=== PATIENT | male | born 1960 | race Caucasian/White ===

== ENCOUNTER 2017-07-21 15:28 | Outpatient (CLI) | payer BC, OTHER ==
--- NOTE | 2017-07-22 13:53 | Ultrasound Report ---
RIGHT UPPER QUADRANT ULTRASOUND: 07/21/2017 CLINICAL INDICATION: Pain, history of trauma two months ago. TECHNIQUE: Real-time scanning was performed with in home sales representative static images obtained. FINDINGS: The liver measures 17.2 cm. The majority of the liver demonstrates increased echogenicity, compatible with fatty infiltration. There is a region of likely fatty sparing in the right lobe. The common bile duct measures 6 mm. The gallbladder is normal. The right kidney measures 10.9 cm, and de monstrates no hydronephrosis. IMPRESSION: FATTY INFILTRATION OF THE LIVER, WITH LIKELY FOCAL FATTY SPARING IN THE RIGHT LOBE. NO F REE FLUID OR CHOLELITHIASIS. JOB #: [id number] EXT JOB #:[id number]
== END 2017-07-21 15:29 | disposition home or self-care (01) ==
LOC: DI 15:28
PROVIDERS: ATTEND Internal Medicine
DX: K76.0 Fatty (change of) liver, not elsewhere classified (principal)
CPT/HCPCS: 76705

== ENCOUNTER 2018-02-25 13:45 | Outpatient (CLI) | payer BC ==
--- NOTE | 2018-02-25 14:23 | XRAY Report ---
TWO VIEW CHEST: 02/25/2018 CLINICAL INDICATION: Cough. FINDINGS: Frontal and lateral views of the chest demonstrate a normal cardiac silhouette. The lungs are clear. No effusion or pneumothorax is present. IMPRESSION: NORMAL CHEST. TD: 02/25/2018 14:11
== END 2018-02-25 13:46 | disposition home or self-care (01) ==
LOC: DI.S 13:45
PROVIDERS: ATTEND Internal Medicine
DX: R05 Cough (principal)
CPT/HCPCS: 71046

== ENCOUNTER 2018-03-13 13:01 | Outpatient (CLI) | payer BC ==
[2018-03-13] MEDS ORDERED: ALBUTEROL NEB 2.5 MG/3 ML INH ONE (14:00)
== END 2018-03-13 13:02 | disposition home or self-care (01) ==
LOC: RT 13:01
PROVIDERS: ATTEND Physician Assistant Medical
DX: R06.2 Wheezing (principal); R05 Cough
CPT/HCPCS: 94060

== ENCOUNTER 2018-07-01 07:13 | Day surgery (SDC) | payer BC ==
[~2018-07-01 07:13] MED LIST: LACTATED RINGERS 1,000 ML IV ONE
[2018-07-01] MEDS ORDERED: MIDAZOLAM 2 MG/2 ML VIAL IVP ONE (08:13)
[2018-07-01] MEDS ORDERED: fentaNYL 100 MCG/2 ML VIAL IVP ONE (08:13)
[2018-07-01] MEDS ORDERED: LIDO GARGLE 30 ML BOTTLE PO ONE (08:21)
[2018-07-01 09:30] VITALS: BP 108/58
== END 2018-07-01 07:14 | disposition home or self-care (01) ==
LOC: SDS 07:13
PROVIDERS: ATTEND Internal Medicine Gastroenterology
PROC: 0DB58ZX Excision of Esophagus, Via Natural or Artificial Opening Endoscopic, Diagnostic (ICD-10-PCS; principal; 2018-07-01 08:15)
DX: K20.9 Esophagitis, unspecified (principal)
CPT/HCPCS: 43239; A9270; J7120

== ENCOUNTER 2018-10-14 08:29 | Outpatient (CLI) | payer BC ==
[2018-10-14 14:14] LABS: BASOPHILS % (AUTO) 0.2 %; EOSINOPHILS % (AUTO) 0.1 %; LYMPHOCYTES # (AUTO) 1.1 10^3/uL (1.5-3.5); LYMPHOCYTES % (AUTO) 18.7 %; MEAN CORPUSCULAR HEMOGLOBIN 33.8 pg (27.0-31.0); MEAN CORPUSCULAR HGB CONC 34.6 g/dL (32.0-36.0); MEAN CORPUSCULAR VOLUME 97.8 fL (80.0-94.0); MEAN PLATELET VOLUME 8.9 fL (7.4-11.4); MONOCYTES # (AUTO) 0.3 10^3/uL (0.0-1.0); NEUTROPHILS # (AUTO) 4.4 10^3/uL (1.5-6.6); PLT - PLATELET COUNT 243 10^3/uL (130-450); RED BLOOD COUNT 4.44 10^6/uL (4.70-6.10); WHITE BLOOD COUNT 5.8 x10^3/uL (4.8-10.8)
[2018-10-14 14:34] LABS: HB2 TOTAL 15.8 g/dL; HEMOGLOBIN A1C 0.49 g/dL
[2018-10-14 14:36] LABS: ALBUMIN 4.4 g/dL (3.2-5.5); ALBUMIN/GLOBULIN RATIO 1.5 (1.0-2.2); ALKALINE PHOSPHATASE 63 IU/L (42-121); ALT ALANINE AMINOTRANSFERASE 23 IU/L (10-60); AST ASPARTATE AMINOTRANSFERASE 20 IU/L (10-42); BILIRUBIN,TOTAL 0.9 mg/dL (0.2-1.0); BUN - BLOOD UREA NITROGEN 22 mg/dL (6-20); CALCIUM 9.3 mg/dL (8.5-10.3); CARBON DIOXIDE - CO2 27 mmol/L (21-32); CHLORIDE 103 mmol/L (101-111); CHOL/HDL RATIO 4.1 (<5.0); CHOLESTEROL 327 mg/dL; CREATININE 0.9 mg/dL (0.6-1.2); GFR - MDRD 87 (>89); GLUCOSE 120 mg/dL (70-100); HDL CHOLESTEROL 79 mg/dL; LDL CHOLESTEROL,CALCULATED 235 mg/dL; SODIUM 137 mmol/L (135-145); TOTAL PROTEIN 7.3 g/dL (6.7-8.2); URIC ACID 7.2 mg/dL (2.6-7.2); VLDL CHOLESTEROL 13 mg/dL
== END 2018-10-14 08:30 | disposition home or self-care (01) ==
LOC: LAB.F 08:29
PROVIDERS: ATTEND Registered Nurse
DX: M10.9 Gout, unspecified (principal); E78.5 Hyperlipidemia, unspecified
CPT/HCPCS: 36415; 80053; 80061; 83036; 83721; 84443; 84550; 85025

== ENCOUNTER 2020-08-16 16:34 | Outpatient (CLI) | payer BC | END 2020-08-16 16:35 | disposition home or self-care (01) | LOC: COV 16:34 | PROVIDERS: ATTEND Family Medicine | DX: Z20.828 Contact with and (suspected) exposure to other viral communicable diseases (principal) ==

== ENCOUNTER 2020-11-19 10:21 | Outpatient (CLI) | payer BC ==
[2020-11-19 15:29] LABS: BASOPHILS % (AUTO) 0.5 %; EOSINOPHILS # (AUTO) 0.6 10^3/uL (0.0-0.7); EOSINOPHILS % (AUTO) 9.9 %; HGB - HEMOGLOBIN 15.1 g/dL (14.0-18.0); LYMPHOCYTES # (AUTO) 1.7 10^3/uL (1.5-3.5); LYMPHOCYTES % (AUTO) 28.7 %; MEAN CORPUSCULAR HGB CONC 33.4 g/dL (32.0-36.0); MEAN CORPUSCULAR VOLUME 98.9 fL (80.0-94.0); MEAN PLATELET VOLUME 10.1 fL (7.4-11.4); MONOCYTES # (AUTO) 0.5 10^3/uL (0.0-1.0); MONOCYTES % (AUTO) 7.6 %; NEUTROPHILS # (AUTO) 3.1 10^3/uL (1.5-6.6); NEUTROPHILS % (AUTO) 52.3 %; PLT - PLATELET COUNT 232 10^3/uL (130-450); RED BLOOD COUNT 4.57 10^6/uL (4.70-6.10); RED CELL DISTRIBUTION WIDTH 11.7 % (12.0-15.0)
[2020-11-19 15:48] LABS: ALBUMIN 4.1 g/dL (3.2-5.5); ALBUMIN/GLOBULIN RATIO 1.6 (1.0-2.2); ALKALINE PHOSPHATASE 64 IU/L (42-121); ALT ALANINE AMINOTRANSFERASE 25 IU/L (10-60); AST ASPARTATE AMINOTRANSFERASE 19 IU/L (10-42); BILIRUBIN,TOTAL 0.8 mg/dL (0.2-1.0); BUN - BLOOD UREA NITROGEN 16 mg/dL (6-20); CALCIUM 9.4 mg/dL (8.5-10.3); CARBON DIOXIDE - CO2 27 mmol/L (21-32); CHLORIDE 100 mmol/L (101-111); CHOL/HDL RATIO 3.6 (<5.0); CHOLESTEROL 196 mg/dL; CREATININE 0.9 mg/dL (0.6-1.2); GLUCOSE 105 mg/dL (70-100); HDL CHOLESTEROL 54 mg/dL; LDL CHOLESTEROL,CALCULATED 122 mg/dL; LDL/HDL RATIO 2.3 (<3.6); TOTAL PROTEIN 6.6 g/dL (6.7-8.2); VLDL CHOLESTEROL 20 mg/dL
== END 2020-11-19 10:22 | disposition home or self-care (01) ==
LOC: LAB.S 10:21
PROVIDERS: ATTEND Internal Medicine
DX: Z00.00 Encounter for general adult medical examination without abnormal findings (principal); E66.9 Obesity, unspecified; E78.5 Hyperlipidemia, unspecified; Z12.5 Encounter for screening for malignant neoplasm of prostate; Z79.899 Other long term (current) drug therapy
CPT/HCPCS: 36415; 80053; 80061; 83721; 84153; 85025

== ENCOUNTER 2021-03-22 10:32 | Day surgery (SDC) | payer BC ==
[2021-03-22] MEDS ORDERED: LACTATED RINGERS 1,000 ML IV ONE (10:37)
[2021-03-22] MEDS ORDERED: fentaNYL 250 MCG/5 ML VIAL ONE (12:42)
[2021-03-22] MEDS ORDERED: MIDAZOLAM 2 MG/2 ML VIAL ONE ×2 (12:42→12:55)
--- NOTE | 2021-03-22 12:42 | HISTORY & PHYSICAL EXAMINATION ---
Chief Complaint - Chief Complaint Chief Complaint: Here for colon cancer screening History of Present Illness - History Obtained From Records Reviewed: yes History obtained from: pt Exam Limitations: none - History of Present Illness HPI Comment/Other: Here for colon cancer screening History - Past Medical History Cardiovascular: reports: None Respiratory: reports: None Endocrine/Autoimmune: reports: None GI: reports: GERD : reports: None HEENT: reports: None Psych: reports: None Musculoskeletal: reports: None Derm: reports: None MRSA Hx?: No - Past Surgical History General: reports: Other Meds/Allgy - Home Medications Home Medications: Ambulatory Orders Medication Instructions Recorded Confirmed Ibuprofen [Advil] 200 mg PO PRN PRN 07/01/18 03/22/21 raNITIdine [Zantac] 150 mg PO DAILY 07/01/18 07/01/18 Omeprazole 40 mg PO DAILY 03/22/21 03/22/21 Rosuvastatin Calcium [Ezallor 5 mg PO DAILY 03/22/21 03/22/21 Sprinkle] - Allergies Allergies/Adverse Reactions: Allergies Allergy/AdvReac Type Severity Reaction Status Date / Time No Known Drug Allergies Allergy Verified 03/22/21 10:55 Review of Systems - Other Findings Other Findings: 10 pt ros as above otherwise unremarkable Exam - Vital Signs Reviewed Vital Signs: Yes Vital Signs: Vital Signs x48h Temp Pulse Resp BP Pulse Ox 03/22/21 10:37 36.5 C 61 20 149/87 H 96 - Physical Exam General Appearance: positive: Alert Eyes Bilateral: positive: PERRL, EOMI ENT: positive: No signs of dehydration Neck: positive: No JVD Respiratory: positive: Breath sounds nml Cardiovascular: positive: Regular rate & rhythm Abdomen: positive: Non-tender, No distention Neurologic/Psychiatric: positive: Oriented x3 Conclusion/Plan - Problem List (1) Colon cancer screening Conclusion/Plan: plan colonoscopy. parq held and consent obtained
[2021-03-22] MEDS ORDERED: LACTATED RINGERS 600 ML IV ONE (13:24)
[2021-03-22 13:47] VITALS: BP 122/82
== END 2021-03-22 10:33 | disposition home or self-care (01) ==
LOC: SDS 10:32
PROVIDERS: ATTEND Surgery
PROC: 0DBM8ZZ Excision of Descending Colon, Via Natural or Artificial Opening Endoscopic (ICD-10-PCS; principal; 2021-03-22 12:30)
DX: Z12.11 Encounter for screening for malignant neoplasm of colon (principal); D12.4 Benign neoplasm of descending colon; K57.30 Diverticulosis of large intestine without perforation or abscess without bleeding
CPT/HCPCS: 45380; J3010; J7120

== ENCOUNTER 2021-05-03 08:00 | Outpatient (CLI) | payer BC ==
[2021-05-03 16:44] LABS: BILIRUBIN,URINE NEGATIVE (NEGATIVE); GLUCOSE, URINE (UA) NEGATIVE (NEGATIVE); KETONES,URINE (UA) NEGATIVE (NEGATIVE); LEUKOCYTE ESTERASE, URINE NEGATIVE (NEGATIVE); NITRITE,URINE NEGATIVE (NEGATIVE); OCCULT BLOOD,URINE NEGATIVE (NEGATIVE); PROTEIN,URINE NEGATIVE (NEGATIVE); UROBILINOGEN,URINE 0.2 (NORMAL) E.U./dL (NORMAL)
[2021-05-03 16:50] LABS: BACTERIA,URINE None Seen /HPF (None Seen); CLARITY,URINE CLEAR (CLEAR); MUCUS,URINE Few Strands; RBC,URINE 0-5 /HPF (0-5); SQUAMOUS EPITHELIAL CELL,UR RARE Squamous (<= Few); WBC,URINE 0-3 /HPF (0-3)
== END 2021-05-03 23:59 | disposition home or self-care (01) ==
LOC: LAB.S 08:00
PROVIDERS: ATTEND Emergency Medicine
DX: R30.0 Dysuria (principal)
CPT/HCPCS: 81001; 87086

== ENCOUNTER 2021-05-08 17:14 | Outpatient (CLI) | payer BC ==
--- NOTE | 2021-05-09 13:15 | Ultrasound Report ---
PROCEDURE: Testicle INDICATIONS: LEFT SPERMATOCELE, LEFT EPIDIDYMITIS TECHNIQUE: Real-time scanning was performed of the scrotum and testicles, with image documentation. Color and p ulse Doppler interrogation was performed of both testicles. COMPARISON: None. FINDINGS: Right: Testicle is normal in size at 3.3 x 4.2 x 5.6 cm, and homogenous in echotexture. Epididymis is normal in overall size and morphology. No hydrocele or varicoceles. Overlying scrotal skin is no rmal in thickness. Left: Testicle is normal in size at 3.2 x 3.7 x 5.3 cm, and homogeneous in echotexture. Epididymis is normal in overall size and morphology. No significant hydrocele, or varicoceles. Overlying scrot al skin is normal in thickness. Note is made of several left epididymal cysts measuring up to 2.2 x 1.7 x 2.4 cm, 1.3 x 0.9 x 1.3 cm, and less than 5 mm. Doppler: Color and pulse Doppler demonstrate normal and symmetric arterial flow in both testicles. IMPRESSION: No sign of testicular torsion or mass. Minimal left scrotal hydrocele. Several small and moderate-siz ed epididymal cysts the largest of which measures up to 2.4 cm. No sign of epididymitis or orchitis b ilaterally. Reviewed by: Renny Yoon MD on 05/09/2021 1:14 PM PDT Approved by: Renny Yoon MD on 05/09/2021 1:14 PM PDT Station ID: [id number]
== END 2021-05-08 17:15 | disposition home or self-care (01) ==
LOC: DI 17:14
PROVIDERS: ATTEND Emergency Medicine
DX: N43.40 Spermatocele of epididymis, unspecified (principal); N45.1 Epididymitis; N50.3 Cyst of epididymis; N43.3 Hydrocele, unspecified

== ENCOUNTER 2021-10-27 18:25 | Emergency (ER) | payer BC ==
[2021-10-27] MEDS ORDERED: TETANUS/DIPHTHERIA/PERTUSSIS 0.5 ML SYRINGE IM ONE (18:46)
--- NOTE | 2021-10-27 18:48 | ED Physician Documentation ---
PD HPI MAJOR TRAUMA - Stated complaint Stated Complaint: FALL W L SIDE FACE INJ - History obtained from History obtained from: Patient - Additional information Additional information: Healthy 61-year-old gentleman was walking in the dark and stepped in a pothole and went down face and left hand first. He has a very mild headache. No loss of consciousness. Injuries include the left side of the face and the left hand. Tetanus status is unknown. Review of Systems Constitutional: reports: Reviewed and negative Nose: reports: Reviewed and negative Throat: reports: Reviewed and negative PD PAST MEDICAL HISTORY - Past Medical History Cardiovascular: None Respiratory: None Endocrine/Autoimmune: None GI: GERD : None HEENT: None Psych: None Musculoskeletal: None Derm: None - Past Surgical History General: Other - Present Medications Home Medications: Ambulatory Orders Medication Instructions Recorded Confirmed raNITIdine [Zantac] 150 mg PO DAILY 07/01/18 10/27/21 Omeprazole 40 mg PO DAILY 03/22/21 10/27/21 Rosuvastatin Calcium [Ezallor 5 mg PO DAILY 03/22/21 10/27/21 Sprinkle] Bacitracin Zinc Oint 1 applic TOP BID #1 gm 10/27/21 - Allergies Allergies/Adverse Reactions: Allergies Allergy/AdvReac Type Severity Reaction Status Date / Time No Known Drug Allergies Allergy Verified 03/22/21 10:55 PD ED PE NORMAL - Vitals Vital signs reviewed: Yes - General General: Alert and oriented X 3, No acute distress - HEENT HEENT: PERRL, EOMI, Other (An abrasion/laceration in and above the left eyebrow without facial bony tenderness. No evidence of entrapment.) - Neck Neck: No bony TTP, C-Spine cleared by NEXUS criteria - Extremities Extremities: Other (Laceration of the left hand medial to the MCP, jagged and quite dirty, about 2 cm. No distal neurovascular compromise.) - Neuro Neuro: Alert and oriented X 3, Normal speech Eye Opening: Spontaneous Motor: Obeys Commands Verbal: Oriented GCS Score: 15 Results - Vitals Vitals: Vital Signs - 24 hr 10/27/21 10/27/21 18:52 19:06 Temperature 36.3 C L 36.5 C Heart Rate 77 77 Respiratory 15 16 Rate Blood Pressure 133/70 H 130/70 O2 Saturation 99 100 Oxygen O2 Source Room air - Rads (name of study) L hand XR Radiology: EMP read contemporaneously (No frx) Procedures - Laceration (location) Face/above the left eyebrow Length in cm: 3 Wound type: Linear (It is a linear laceration but it is embedded in an abrasion.), Heavily Contaminated (With dirt and road grit) Neurovascular status: Sensory intact, Motor intact, Vascular intact Anesthesia: Lidocaine 1% with epi Wound preparation: Irrigated copiously NS, Debrided extensively, Wound explored, To the base Skin layer closure: Nylon, Running, Size #-0 - enter number (5-0) Other: Tetanus booster given L hand Length in cm: 2.5 Wound type: Stellate, Irregular, Into subcut fat, Heavily Contaminated Anesthesia: Lidocaine 1% with epi Wound preparation: Irrigated copiously NS Skin layer closure: Nylon, Interrupted, Size #-0 - enter number (4-0), Sutures - enter # (5) Other: Tetanus booster given Departure - Departure Disposition: 01 Home, Self Care Clinical Impression: Abrasion, face w/o infection Facial laceration Qualifiers: Encounter type: initial encounter Qualified Code(s): S01.81XA - Laceration without foreign body of other part of head, initial encounter Hand laceration Qualifiers: Encounter type: initial encounter Foreign body presence: without foreign body Laterality: left Qualified Code(s): S61.412A - Laceration without foreign body of left hand, initial encounter Condition: Good Record reviewed to determine appropriate education?: Yes Instructions: ED Laceration Hand, ED Laceration Facial Sutr Tape Prescriptions: Bacitracin Zinc Oint 1 applic TOP BID #1 gm Comments: The facial sutures need to come out in a week, the hand sutures in 2 weeks. You can wash both with soap and water, keep it covered with the dressing that she can replace daily and the antibiotic ointment which I am prescribing. Return for new or worsening symptoms or signs of infection which would include redness, swelling, drainage, increased pain. Discharge Date/Time: 10/27/21 19:56
[2021-10-27] MEDS ORDERED: LIDOCAINE 1%-EPI 1:100000 20 ML MDV SUBQ STA (19:17)
[2021-10-27] MEDS ORDERED: HYDROcod/ACET 5/325 Prepack 4 PO STA (19:31)
[2021-10-27] MEDS ORDERED: CEPHALEXIN 250 MG Prepack 8 CAP BOTTLE PO STA (19:31)
[2021-10-27] MEDS ORDERED: BACITRACIN ZINC OINT 1 PACKET TOP STA (19:35)
[2021-10-27 19:45] VITALS: BP 130/70
--- NOTE | 2021-10-27 19:46 | XRAY Report ---
PROCEDURE: Hand 3 View LT INDICATIONS: hand injury TECHNIQUE: 3 views of the hand(s) acquired. COMPARISON: None. FINDINGS: A portion of the fourth proximal phalanx is obscured by the patient's referring. BONES: No acute, displaced fracture or dislocation. The carpal bones are normally aligned. SOFT TISSUES: Faint radiodensities overlying the fifth metacarpophalangeal joint. IMPRESSION: 1.No acute osseous abnormality. Reviewed by: Alber Fields MD on 10/27/2021 7:45 PM RUST Approved by: Alber Fields MD on 10/27/2021 7:45 PM RUST Station ID: [id number]
== END 2021-10-27 19:56 | disposition home or self-care (01) ==
LOC: ED 18:25
DX: S61.412A Laceration without foreign body of left hand, initial encounter (principal); S01.112A Laceration without foreign body of left eyelid and periocular area, initial encounter; W18.09XA Striking against other object with subsequent fall, initial encounter; Y93.01 Activity, walking, marching and hiking; Z23 Encounter for immunization
CPT/HCPCS: 12041; 12052; 73130; 90471; 90715; 99283; A9270

== ENCOUNTER 2021-12-18 08:00 | Outpatient (CLI) | payer BC ==
[2021-12-18 15:18] LABS: BASOPHILS % (AUTO) 0.6 %; EOSINOPHILS # (AUTO) 0.1 10^3/uL (0.0-0.7); EOSINOPHILS % (AUTO) 1.9 %; HCT - HEMATOCRIT 44.5 % (42.0-52.0); HGB - HEMOGLOBIN 14.8 g/dL (14.0-18.0); LYMPHOCYTES # (AUTO) 1.7 10^3/uL (1.5-3.5); LYMPHOCYTES % (AUTO) 34.6 %; MEAN CORPUSCULAR HEMOGLOBIN 32.8 pg (27.0-31.0); MEAN CORPUSCULAR HGB CONC 33.3 g/dL (32.0-36.0); MEAN CORPUSCULAR VOLUME 98.7 fL (80.0-94.0); MEAN PLATELET VOLUME 10.2 fL (7.4-11.4); MONOCYTES # (AUTO) 0.4 10^3/uL (0.0-1.0); MONOCYTES % (AUTO) 7.6 %; NEUTROPHILS # (AUTO) 2.7 10^3/uL (1.5-6.6); NEUTROPHILS % (AUTO) 55.1 %; PLT - PLATELET COUNT 228 10^3/uL (130-450); RED BLOOD COUNT 4.51 10^6/uL (4.70-6.10); WHITE BLOOD COUNT 4.9 x10^3/uL (4.8-10.8)
[2021-12-18 15:40] LABS: ALBUMIN 4.4 g/dL (3.2-5.5); ALBUMIN/GLOBULIN RATIO 1.8 (1.0-2.2); ALKALINE PHOSPHATASE 59 IU/L (42-121); ALT ALANINE AMINOTRANSFERASE 26 IU/L (10-60); AST ASPARTATE AMINOTRANSFERASE 23 IU/L (10-42); BILIRUBIN,TOTAL 0.8 mg/dL (0.2-1.0); BUN - BLOOD UREA NITROGEN 11 mg/dL (6-20); CALCIUM 9.3 mg/dL (8.5-10.3); CARBON DIOXIDE - CO2 27 mmol/L (21-32); CHLORIDE 104 mmol/L (101-111); CHOL/HDL RATIO 3.5 (<5.0); CHOLESTEROL 232 mg/dL; CREATININE 0.8 mg/dL (0.6-1.2); GFR - MDRD 99 (>89); GLUCOSE 107 mg/dL (70-100); HDL CHOLESTEROL 67 mg/dL; LDL CHOLESTEROL,CALCULATED 150 mg/dL; LDL/HDL RATIO 2.2 (<3.6); POTASSIUM 4.4 mmol/L (3.5-5.0); SODIUM 139 mmol/L (135-145); TOTAL PROTEIN 6.8 g/dL (6.7-8.2); TRIGLYCERIDES 76 mg/dL; VLDL CHOLESTEROL 15 mg/dL
[2021-12-18 15:46] LABS: THYROID STIMULATING HORMONE 2.62 uIU/mL (0.34-5.60)
== END 2021-12-18 23:59 ==
LOC: LAB.S 08:00
PROVIDERS: ATTEND Emergency Medicine
DX: Z00.00 Encounter for general adult medical examination without abnormal findings (principal); K21.9 Gastro-esophageal reflux disease without esophagitis; E78.5 Hyperlipidemia, unspecified; Z12.5 Encounter for screening for malignant neoplasm of prostate
CPT/HCPCS: 36415; 80053; 80061; 83721; 84153; 84443; 85025

== ENCOUNTER 2022-01-24 07:42 | Outpatient (CLI) | payer BC ==
--- NOTE | 2022-01-24 08:45 | XRAY Report ---
PROCEDURE: Chest 2 View X-Ray INDICATIONS: RIGHT LOWER ZONE PNEUMONIA TECHNIQUE: 2 view(s) of the chest. COMPARISON: February 25, 2018 FINDINGS: SUPPORT DEVICES: None. LUNGS/PLEURA: No focal consolidation, pleural effusion or space-occupying pneumothorax. MEDIASTINUM: The cardiomediastinal silhouette is within normal limits. BONES/SOFT TISSUES: No acute abnormality. IMPRESSION: 1.No acute cardiopulmonary abnormality. Reviewed by: Alber Fields MD on 01/24/2022 8:44 AM PDT Approved by: Alber Fields MD on 01/24/2022 8:44 AM PDT Station ID: [id number]
== END 2022-01-24 23:59 | disposition home or self-care (01) ==
LOC: DI.S 07:42
PROVIDERS: ATTEND Emergency Medicine
DX: J18.9 Pneumonia, unspecified organism (principal)

== ENCOUNTER 2023-04-17 13:40 | Outpatient (CLI) | payer BC ==
--- NOTE | 2023-04-17 14:38 | Sleep Patient Instructions ---
Sleep Center Visit Summary - Patient Visit Information Reason for Visit: Initial consult for evaluation of sleep disordered breathing and other sleep issues. - Patient Instructions Instructions Attached: Sleep Study, Sleep Clinic Visit Additional Instructions: You will be completing a sleep study, either an in-lab polysomnography (PSG) or home sleep study (HST). You will follow-up in the sleep care office after the sleep study is completed to hear the results and talk about therapy, if needed. You will be called by our office staff to schedule this appointment, but you may contact us with any questions. - Clinic Information Contact: [facility] [address] [place] [address] [email or web address] T: [phone]
--- NOTE | 2023-04-17 14:51 | SLEEP CARE CONSULTATION ---
Information from patient questionnaire entered by Eugenia Hargrove. I have reviewed and concur with the information entered by Eugenia Hargrove. This document represents the service I personally performed and the decisions made by me, Ivy Mckay ARNP. History of Present Illness Service Date and Time: 04/17/2023 1340 Reason for Visit: New patient Accompanied by: Spouse (Christin) Chief Complaint: reports: Snoring, Excessive daytime sleepiness, Observed pauses in breathing, Fatigue, Frequent awakenings at night Date of Onset: 3YRS Usual bedtime: 10PM Time it takes to fall asleep: 15MIN Snores at night: Yes Observed to quit breathing while asleep: Yes Sleeps alone due to snoring: No Number of times waking at night: 1-2 Reasons for waking at night: reports: Bathroom, Other (UNKNOWN). denies: Choking, Snoring, Gasping for air Toss, Turn, or Twitch while sleeping: Yes Recalls having dreams: Yes (he has been having very vivid/ "exciting" dreams) Usually gets out of bed at: 6-7AM Feels refreshed in the morning: Yes Morning headache: No Sleepy or fatigued during the day: Yes Ever fallen asleep while driving: No Takes day naps: No (usually after an international trip, when jet lagged) Year and Where: 12/26/2022 [facility] Additional HPI information: I had the pleasure of seeing JAKOB JIMENEZ today regarding the possibility of him having a sleep disorder. His current complaints are excessive daytime sleepiness, fatigue, frequent night awakenings, observed pauses in breathing and snoring. His helps with history. He states he did a home study on 12-26-2022 but that he did not feel he slept at all during the study and was told he has mild apnea. He did not bring the results with him and he feels it was not a good representation of his sleep. His real concern is that he has episodes where he "checks out". He will randomly fall asleep or just "looks blank" and does not hear or respond to his . His will talk to him but he does not remember what was said. He states usually he has a very good memory. It may happen a few times in a short time and then go for a while without the "checking out". He had an episode two nights ago and before that it was 4 or more months ago. She has noted him snoring and stopping breathing with gasping/choking sounds. She thinks he is very overtired at the end of the day. It normally only happens in late afternoon to evening. She states he will fall asleep quickly ("instantly") at this time. She says he is even "slurring" his words when answering her. She will try to get him to lay down to sleep but he will go sit in chair and fall instantly asleep. He has to travel a lot for work and going in different time zones, international travel for work. She says he has snored all the time (he can be very loud at times) but the checking out has only been in the last 3-4 years. He states he has times when he will wake up during the night and cannot go back to sleep but he feels this is more when he comes back from other time zones and is adjusting back to home time. His does not agree and feels it is more random. - Parasomnia Symptoms Ever been unable to move upon waking from sleep: No Walks in sleep: Yes (only as a child) Talks in sleep: Yes (talking and yelling more recently) Ever acted out dreams in sleep: Yes (little jerks, grabbed 's arm) Ever felt weak in the knees when startled or emotional: Yes Bothered by creepy, crawly, restless sensations in legs: No Problems with memory or concentration: Yes (memory mostly when he has these "spells") Subjective Initial [place] Sleepiness Scale score: 5 (04/17/23) Past Medical History Past Medical History: reports: GERD, Other (high cholesterol) Social History 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 Patient is and lives in [place]. Have you smoked in the past 12 months: No Alcohol use: Yes Alcohol amount and frequency: 1-2 SELDOM Caffeine use: Yes Caffeine amount and frequency: 1-2 CUPS DAILY Family History Family history of sleep disordered breathing: Yes Family Hx Sleep Apnea: Father: Snoring, Sleep apnea - Treated Allergies and Home Medications Known drug allergies: No Drug allergies reviewed: Yes Home medication list reviewed: Yes (see updated list in EMR) Allergy and home medication list: Allergies No Known Drug Allergies Allergy (Verified 04/16/23 09:31) Review of Systems Weight gain over past 5 years: 15 Cardiovascular: denies: high blood pressure Respiratory: reports: chronic cough Gastrointestinal: reports: heartburn Neurological: denies: headaches Psychiatric: denies: anxiety, depression Ear/Nose/Throat: reports: nasal congestion, sinus problems. denies: tonsillectomy Endocrine: reports: sluggishness Immunologic: reports: sneezing Physical Exam Vital signs obtained and entered by: EUGENIA Brewer MA Blood Pressure: 128/68 (LEFT ARM) Cuff size: regular Heart Rate: 67 O2 Saturation: 97 Height: 6 ft 2 in Weight: 260 lb 3.2 oz Body Mass Index: 33.4 BMI Classification: Obese Neck circumference: 16.75 Mouth and throat: narrow oropharynx Soft palate: long Hard palate: normal Uvula: normal Uvula visualization: 25% Mallampati Class III Tongue: enlarged in size with teeth mariscal on lateral edges Tonsils: small Neck: normal w/o lymphadenopathy or thyromegaly Heart: regular rate and rhythm Lungs: clear bilaterally Impression and Plan 1. Suspected Obstructive Sleep Apnea-Hypopnea Syndrome, as previously diagnosed and suggested by a history of loud and irregular snoring, observed cessation of breath while asleep, gasping or choking in sleep, frequent awakening during the night, cognitive impairment, and excessive daytime sleepiness. Narrow oropharynx and obesity are common predisposing factors for obstructive sleep apnea-hypopnea syndrome. I recommend proceeding to polysomnography to confirm the diagnosis and to assess severity. If the patient has significant sleep disordered breathing, a manual CPAP titration study will also be performed to find the optimal treatment pressure. I informed the patient of what the sleep studies involve and after some discussion, obtained agreement to proceed. The pathophysiology of obstructive sleep apnea-hypopnea syndrome was discussed with the patient and health risks of cardiovascular and cerebrovascular disease if not treated. Risks of drowsy driving discussed in detail and patient advised to avoid long distance driving and to pack puller at the first sign of drowsiness. Patient agreed to plan. * Schedule polysomnography +- manual CPAP titration study and return in 1-2 weeks after the study to discuss result and initiate therapy. * Avoid long distance driving or driving when feeling sleepy. * Avoid alcohol, sedative and muscle relaxant around bedtime. * Attempt to lose weight. * Review instructions provided by trained office staff on how to prepare for the sleep study. * Return for follow-up after sleep study completed. Counseling Topics: Weight loss health impact Visit Type: In Office Provider Statement: I spent 100% of the Face to Face Visit with the patient with greater than 50% spent counseling the patient and coordination of care.
[2023-04-17 14:53] VITALS: BP 128/68
== END 2023-04-17 13:41 | disposition home or self-care (01) ==
LOC: SC 13:40
PROVIDERS: ATTEND Nurse Practitioner Family
DX: G47.33 Obstructive sleep apnea (adult) (pediatric) (principal); E66.9 Obesity, unspecified; Z68.33 Body mass index [BMI] 33.0-33.9, adult
CPT/HCPCS: 99203; 99212

== ENCOUNTER 2023-06-05 10:40 | Day surgery (SDC) | payer BC ==
[2023-06-05] MEDS ORDERED: LACTATED RINGERS 1,000 ML IV ONE ×2 (11:14→12:21)
--- NOTE | 2023-06-05 11:28 | ANESTHESIA ---
Pre-Anesthesia VS, & Labs - Diagnosis stomach pain - Procedure EGD Vital Signs: Temp Pulse Resp BP Pulse Ox O2 Flow Rate 36.1 C L 58 L 16 127/78 97 06/05/23 10:50 06/05/23 10:50 06/05/23 10:50 06/05/23 10:50 06/05/23 10:50 Height: 6 ft 3 in Weight (kg): 116.3 kg Body Mass Index: 32.0 BMI Classification: Obese - NPO >8 hours Home Medications and Allergies Omeprazole 40 mg PO DAILY 03/22/21 Rosuvastatin Calcium [Ezallor Sprinkle] 5 mg PO DAILY 03/22/21 Ascorbic Acid [Vitamin C] See Rx Instructions .ROUTE .COMPLEX 04/17/23 Elderberry Fruit [Elderberry] See Rx Instructions .ROUTE .COMPLEX 04/17/23 Lactobacillus Combination No.4 [Probiotic] See Rx Instructions .ROUTE .COMPLEX 04/17/23 Multivitamin See Rx Instructions .ROUTE .COMPLEX 04/17/23 Conception-3 Fatty Acids [Conception-3] See Rx Instructions .ROUTE .COMPLEX 04/17/23 Ubidecarenone [Co Q-10] See Rx Instructions .ROUTE .COMPLEX 04/17/23 Vitamin B Complex Vit C No.3 [B Complex with Vitamin C] See Rx Instructions .ROUTE .COMPLEX 04/17/23 Allergies/Adverse Reactions: Allergies Allergy/AdvReac Type Severity Reaction Status Date / Time No Known Drug Allergies Allergy Verified 04/16/23 09:31 Anes History & Medical History - Anesthetic History Anesthesia Complications: reports: No previous complications - Medical History Cardiovascular: reports: None Pulmonary: reports: Sleep apnea Gastrointestinal: reports: GERD Urinary: reports: None Musculoskeletal: reports: None Endocrine/Autoimmune: reports: None Skin: reports: None Smoking Status: Never smoker History of Cancer?: No - Surgical History General: reports: Other Exam General: Alert, Oriented x3 Dental: WNL Mouth Opening: Greater than 4 Fingerbreadths Neck Mobility: Normal Mallampati classification: II Thyromental Distance: greater than 6 cm Respiratory: Lungs clear Cardiovascular: Regular rate, Normal S1, Normal S2 Plan Anesthesia Type: General Consent for Procedure(s) Verified and Reviewed: Yes Code Status: Attempt Resuscitation ASA classification: 2-Mild systemic disease Is this case an emergency?: No
[2023-06-05 12:34] VITALS: BP 115/80; O2SAT 97
--- NOTE | 2023-06-05 12:53 | ANESTHESIA POST OP EVALUATION ---
Anesthesia Post Eval - Post Anesthesia Eval Vitals: Last Vital Signs Temp 36.1 C L 06/05/23 12:31 Pulse 58 L 06/05/23 12:31 Resp 16 06/05/23 12:31 BP 115/80 06/05/23 12:31 Pulse Ox 97 06/05/23 12:31 O2 Flow Rate CV Function Including HR & BP: Stable Pain Control: Satisfactory Nausea & Vomiting: Negative Mental Status: Baseline Respiratory Status: Airway Patent Hydration Status: Satisfactory Anesthesia Complications: None
== END 2023-06-05 10:41 | disposition home or self-care (01) ==
LOC: SDS 10:40
PROVIDERS: ATTEND Surgery
PROC: 0DB68ZX Excision of Stomach, Via Natural or Artificial Opening Endoscopic, Diagnostic (ICD-10-PCS; 2023-06-05)
PROC: 0DB58ZX Excision of Esophagus, Via Natural or Artificial Opening Endoscopic, Diagnostic (ICD-10-PCS; principal; 2023-06-05 12:00)
DX: K21.9 Gastro-esophageal reflux disease without esophagitis (principal); E66.9 Obesity, unspecified; G47.30 Sleep apnea, unspecified; Z68.32 Body mass index [BMI] 32.0-32.9, adult
CPT/HCPCS: 43239; J7120